=== PATIENT | female | born 1975 ===

== ENCOUNTER 2020-01-20 16:13 | Outpatient (CLI) | payer OTHER | END 2020-01-20 16:15 | disposition home or self-care (01) | LOC: LAB 16:13 → PPH VACUNA 16:13 → LAB 01-23 16:13 | DX: Z23 Encounter for immunization (principal) ==

== ENCOUNTER 2020-03-31 16:35 | Outpatient (CLI) | payer OTHER | END 2020-03-31 16:42 | disposition home or self-care (01) | LOC: LAB 16:35 | DX: N60.11 Diffuse cystic mastopathy of right breast (principal); N60.12 Diffuse cystic mastopathy of left breast; Z20.828 Contact with and (suspected) exposure to other viral communicable diseases ==

== ENCOUNTER 2020-04-08 08:05 | Outpatient (CLI) | payer OTHER | END 2020-04-08 15:01 | disposition home or self-care (01) | LOC: LAB 08:05 | DX: Z20.828 Contact with and (suspected) exposure to other viral communicable diseases (principal) ==

== ENCOUNTER → 2020-11-09 09:24 | Outpatient (CLI) | payer OTHER | END | disposition home or self-care (01) | LOC: LAB 08:46 | PROVIDERS: ATTEND Surgery | DX: D64.89 Other specified anemias (principal) ==

== ENCOUNTER → 2020-11-27 15:00 | Outpatient (CLI) | payer OTHER | END | disposition home or self-care (01) | LOC: LAB 11-26 17:22 | PROVIDERS: ATTEND Emergency Medicine Pediatric Emergency Medicine | DX: Z03.818 Encounter for observation for suspected exposure to other biological agents ruled out (principal) ==

== ENCOUNTER 2021-01-26 08:00 | Outpatient (CLI) | payer OTHER | END 2021-01-26 08:30 | disposition home or self-care (01) | LOC: PPH VACUNA 08:00 | PROVIDERS: ATTEND Emergency Medicine Pediatric Emergency Medicine | DX: Z23 Encounter for immunization (principal) ==

== ENCOUNTER 2021-02-03 10:40 | Outpatient (CLI) | payer OTHER | END 2021-02-03 10:41 | disposition home or self-care (01) | LOC: PPH VACUNA 10:40 | PROVIDERS: ATTEND Emergency Medicine Pediatric Emergency Medicine | DX: Z23 Encounter for immunization (principal) ==

== ENCOUNTER 2021-04-13 07:55 | Outpatient (CLI) | payer OTHER | END 2021-04-13 07:56 | disposition home or self-care (01) | LOC: RAD 07:55 | PROVIDERS: ATTEND Surgery | DX: I10 Essential (primary) hypertension (principal) ==

== ENCOUNTER 2021-08-16 08:05 | Outpatient (CLI) | payer OTHER | END 2021-08-16 11:23 | disposition home or self-care (01) | LOC: LAB 08:05 | PROVIDERS: ATTEND Surgery | DX: Z20.828 Contact with and (suspected) exposure to other viral communicable diseases (principal) ==

== ENCOUNTER 2022-05-24 08:38 | Outpatient (CLI) | payer OTHER | END 2022-05-24 09:00 | disposition home or self-care (01) | LOC: SONOGRAMA 08:38 | PROVIDERS: ATTEND Surgery | DX: M77.8 Other enthesopathies, not elsewhere classified (principal) ==

== ENCOUNTER → 2022-07-12 | Outpatient (CLI) | payer OTHER | END | disposition home or self-care (01) | LOC: SONOGRAMA 07:59 | PROVIDERS: ATTEND Surgery | DX: N64.4 Mastodynia (principal) ==

== ENCOUNTER → 2022-11-10 | Day surgery (SDC) | payer OTHER ==
[~2022-11-10] MED LIST: TAMOXIFEN CITRA10 MG PO
== END | disposition home or self-care (01) ==
LOC: CIR.AMB 06:45
PROVIDERS: ATTEND Surgery
DX: D05.12 Intraductal carcinoma in situ of left breast (principal); N60.92 Unspecified benign mammary dysplasia of left breast; N60.82 Other benign mammary dysplasias of left breast; Z20.822 Contact with and (suspected) exposure to COVID-19; R92.0 Mammographic microcalcification found on diagnostic imaging of breast
CPT/HCPCS: 19301; 19281; L8699

== ENCOUNTER 2024-10-06 07:30 | Day surgery (SDC) | payer OTHER ==
[2024-10-01 13:48] LABS: BASO % 0.6 % (0.1-1.2); EOS # 0.05 (0.04-0.54); EOS % 0.8 % (0.7-7.0); HEMATOCRIT 36.4 % (34.1-44.9); HEMOGLOBIN 12.1 g/dL (11.2-15.7); LYMPH # 1.62 (1.18-3.74); MEAN CORPUSCULAR HEMOGLOBIN 27.7 pg (25.6-32.2); MONO # 0.41 (0.24-0.82); MONO % 6.6 % (4.7-12.5); NEUT % 65.7 % (34.0-71.1); PLATELET COUNT 208 K/uL (163-369); RED BLOOD COUNT 4.37 M/uL (3.93-5.22); RED CELL DISTRIBUTION WIDTH 13.2 % (11.6-14.4)
[2024-10-01 14:06] LABS: PARTIAL THROMBOPLASTIN TIME 28.4 SECONDS (22.0-34.0); PROTHROMBIN TIME 10.9 SECONDS (9.0-11.5)
[2024-10-01 15:05] LABS: ALBUMIN 4.4 gm/dL (3.4-5.0); BILIRUBIN TOTAL 0.3 mg/dL (0.3-1.2); CALCIUM 9.6 mg/dL (8.5-10.1); CREATININE SERUM 0.82 mg/dL (0.55-1.02); GFR 74.72; GLOBULINA 3.1 G/DL (2.4-3.5); POTASSIUM 3.86 mEq/L (3.5-5.1); TOTAL PROTEIN 7.5 gm/dL (6.4-8.2)
[2024-10-06] MEDS ORDERED: fentaNYL CITRATE 50 MCG/ML AMPUL IV ONE (12:15)
[2024-10-06] MEDS ORDERED: FLUMAZENIL 0.5 MG/5 ML ML IV ONE (12:15)
[2024-10-06] MEDS ORDERED: DIPHENHYDRAMINE HCL 50 MG/ML VIAL 1ML IV ONE (12:15)
[2024-10-06] MEDS ORDERED: MIDAZOLAM HCL 2 MG/2 ML VIAL IV ONE (12:15)
[2024-10-06] MEDS ORDERED: NALOXONE HCL 0.4 MG/ML AMPUL IV ONE (14:00)
== END 2024-10-06 08:30 | disposition home or self-care (01) ==
LOC: AMB-ENDOS 07:30
PROVIDERS: ATTEND Surgery
DX: K57.30 Diverticulosis of large intestine without perforation or abscess without bleeding (principal); R19.4 Change in bowel habit; Z88.2 Allergy status to sulfonamides; Z91.018 Allergy to other foods

== ENCOUNTER → 2025-03-02 16:01 | Outpatient (CLI) | payer OTHER | END | disposition home or self-care (01) | LOC: TOM 16:01 | PROVIDERS: ATTEND Otolaryngology | DX: J32.0 Chronic maxillary sinusitis (principal) ==